=== PATIENT | female | born 1995 | race Two or more races ===

== ENCOUNTER 2021-02-12 07:51 | Outpatient (CLI) | payer OTHER | END 2021-02-12 07:52 | disposition home or self-care (01) | LOC: LAB 07:51 | PROVIDERS: ATTEND Obstetrics & Gynecology | DX: Z20.828 Contact with and (suspected) exposure to other viral communicable diseases (principal); Z20.818 Contact with and (suspected) exposure to other bacterial communicable diseases ==

== ENCOUNTER 2022-03-17 08:57 | Outpatient (CLI) | payer OTHER | END 2022-03-17 10:55 | disposition home or self-care (01) | LOC: PRENATAL 08:57 | PROVIDERS: ATTEND Obstetrics & Gynecology Maternal & Fetal Medicine | DX: O35.9XX0 Maternal care for (suspected) fetal abnormality and damage, unspecified, not applicable or unspecified (principal); Z36.0 Encounter for antenatal screening for chromosomal anomalies; O99.210 Obesity complicating pregnancy, unspecified trimester; O35.3XX0 Maternal care for (suspected) damage to fetus from viral disease in mother, not applicable or unspecified; Z3A.25 25 weeks gestation of pregnancy ==

== ENCOUNTER 2022-05-06 09:47 | Outpatient (CLI) | payer OTHER | END 2022-05-06 12:00 | disposition home or self-care (01) | LOC: PRENATAL 09:47 | PROVIDERS: ATTEND Obstetrics & Gynecology Maternal & Fetal Medicine | DX: O26.849 Uterine size-date discrepancy, unspecified trimester (principal); O36.8199 Decreased fetal movements, unspecified trimester, other fetus; O99.210 Obesity complicating pregnancy, unspecified trimester; Z3A.33 33 weeks gestation of pregnancy ==

== ENCOUNTER 2022-06-16 16:23 | Inpatient (IN) | payer OTHER ==
[~2022-06-16] VITALS: Ht 170.2 cm; Wt 3.2 kg
[2022-06-16] MEDS ORDERED: PRENATAL + DHA1 EAC1 PO (17:58)
[2022-06-16] MEDS ORDERED: ACID REDUCER20 M1 PO (17:59)
[2022-06-20] MEDS ORDERED: IBUPROFEN600 MG PO (10:13)
== END 2022-06-20 10:51 | disposition home or self-care (01) | DRG 788 ==
LOC: O/R 16:23 → LDR 16:23 → O/R 06-17 16:35 → OB/GYN 06-17 20:13
PROVIDERS: ADMIT Obstetrics & Gynecology; ATTEND Obstetrics & Gynecology
PROC: 3E0P7VZ Introduction of Hormone into Female Reproductive, Via Natural or Artificial Opening (ICD-10-PCS; 2022-06-16)
PROC: 4A1HXCZ Monitoring of Products of Conception, Cardiac Rate, External Approach (ICD-10-PCS; 2022-06-16)
PROC: 3E033VJ Introduction of Other Hormone into Peripheral Vein, Percutaneous Approach (ICD-10-PCS; 2022-06-17)
PROC: 10D00Z1 Extraction of Products of Conception, Low, Open Approach (ICD-10-PCS; principal; 2022-06-17 16:45)
DX: O61.0 Failed medical induction of labor (principal); O14.04 Mild to moderate pre-eclampsia, complicating childbirth; O62.0 Primary inadequate contractions; Z3A.39 39 weeks gestation of pregnancy; Z37.0 Single live birth; Z20.822 Contact with and (suspected) exposure to COVID-19